=== PATIENT | male | born 1945 | race Asian ===

== ENCOUNTER → 2022-12-05 | Day surgery (SDC) | payer OTHER, MEDICAID ==
[~2022-12-05] MED LIST: BALANCED SALT 15 ML OPHTHALMIC IRRIG.SOLN ONE; EPINEPHrine 1:1,000 [1 MG/ML] VIAL ONE; KETOROLAC TROMETHAMINE 0.5% 5 ML OPHTHALMIC SOLUTION OD SCH; KETOROLAC TROMETHAMINE 0.5% 5 ML OPHTHALMIC SOLUTION ONE; LIDOCAINE/PF 1% 2 ML VIAL ONE; MOXIFLOXACIN HCL 0.5% 3 ML OPHTHALMIC SOLUTION OD SCH; MOXIFLOXACIN HCL 0.5% 3 ML OPHTHALMIC SOLUTION ONE; PHENYLEPHRINE HCL 2.5% 2 ML OPHTHALMIC SOLUTION OD SCH; PHENYLEPHRINE HCL 2.5% 2 ML OPHTHALMIC SOLUTION ONE; POVIDONE-IODINE 5% 30 ML OPHTHALMIC SOLUTION ONE; RINGERS SOLUTION,LACTATED 0 ML IV ONE; RINGERS SOLUTION,LACTATED 500 ML IV ONE; TETRACAINE HCL/PF 0.5% 4 ML OPHTHALMIC SOLUTION ONE; TROPICAMIDE 1% 2 ML OPHTHALMIC SOLUTION OD SCH; TROPICAMIDE 1% 2 ML OPHTHALMIC SOLUTION ONE
== END | disposition still patient (30) ==
LOC: SURGERY 09:24
PROVIDERS: ATTEND Ophthalmology
DX: H25.11 Age-related nuclear cataract, right eye (principal); Z53.8 Procedure and treatment not carried out for other reasons
CPT/HCPCS: J0171; J3490; Q9967; J7120

== ENCOUNTER → 2023-01-02 | Day surgery (SDC) | payer OTHER, MEDICAID ==
[~2023-01-02] VITALS: Ht 167.6 cm; Wt 77.3 kg
[~2023-01-02] MED LIST changes: +EMPA10TA3 PO; +FentaNYL CITRATE PF 100 MCG/2 ML VIAL IVP ONE; +HYALURONATE SOD 8.5MG/0.85ML 10 MG/ML SYRINGE IO ONE; -KETOROLAC TROMETHAMINE 0.5% 5 ML OPHTHALMIC SOLUTION OD SCH; +METO25 PO; +MIDAZOLAM HCL 2 MG/2 ML VIAL IVP ONE; -MOXIFLOXACIN HCL 0.5% 3 ML OPHTHALMIC SOLUTION OD SCH; -PHENYLEPHRINE HCL 2.5% 2 ML OPHTHALMIC SOLUTION OD SCH; -RINGERS SOLUTION,LACTATED 0 ML IV ONE; -TROPICAMIDE 1% 2 ML OPHTHALMIC SOLUTION OD SCH
[2023-01-02] MEDS: TROPICAMIDE 1% 2 ML OPHTHALMIC SOLUTION OD SCH ×3 (08:19→08:33)
[2023-01-02] MEDS: MOXIFLOXACIN HCL 0.5% 3 ML OPHTHALMIC SOLUTION OD SCH ×3 (08:19→08:33)
[2023-01-02] MEDS: KETOROLAC TROMETHAMINE 0.5% 5 ML OPHTHALMIC SOLUTION OD SCH ×3 (08:19→08:33)
[2023-01-02] MEDS: PHENYLEPHRINE HCL 2.5% 2 ML OPHTHALMIC SOLUTION OD SCH ×3 (08:19→08:33)
[2023-01-02 08:46] LABS: GLUCOMETER DEV NAME(LOC) SDS.; GLUCOSE,POINT OF CARE 137 MG/DL (70-110)
== END | disposition home or self-care (01) ==
LOC: SURGERY 07:18
PROVIDERS: ATTEND Ophthalmology
DX: E11.36 Type 2 diabetes mellitus with diabetic cataract (principal); H25.12 Age-related nuclear cataract, left eye; I10 Essential (primary) hypertension; I25.10 Atherosclerotic heart disease of native coronary artery without angina pectoris; E03.9 Hypothyroidism, unspecified; Z98.890 Other specified postprocedural states; Z95.1 Presence of aortocoronary bypass graft
CPT/HCPCS: 93005; 82962; 66984; J0171; J3010; J3490; J2250; Q9967; J7120; V2632

== ENCOUNTER 2023-04-03 08:43 | Day surgery (SDC) | payer OTHER, MEDICAID ==
[~2023-04-03] VITALS: Ht 167.6 cm; Wt 77.2 kg
[~2023-04-03 08:43] MED LIST changes: -BALANCED SALT 15 ML OPHTHALMIC IRRIG.SOLN ONE; -EPINEPHrine 1:1,000 [1 MG/ML] VIAL ONE; -FentaNYL CITRATE PF 100 MCG/2 ML VIAL IVP ONE; -HYALURONATE SOD 8.5MG/0.85ML 10 MG/ML SYRINGE IO ONE; -LIDOCAINE/PF 1% 2 ML VIAL ONE; -MIDAZOLAM HCL 2 MG/2 ML VIAL IVP ONE; -POVIDONE-IODINE 5% 30 ML OPHTHALMIC SOLUTION ONE; +RINGERS SOLUTION,LACTATED 0 ML IV ONE; -RINGERS SOLUTION,LACTATED 500 ML IV ONE; -TETRACAINE HCL/PF 0.5% 4 ML OPHTHALMIC SOLUTION ONE
[2023-04-03] MEDS ORDERED: RINGERS SOLUTION,LACTATED 500 ML IV ONE ×2 (09:00→10:24)
[2023-04-03] MEDS: KETOROLAC TROMETHAMINE 0.5% 5 ML OPHTHALMIC SOLUTION OS SCH ×3 (09:33→09:47)
[2023-04-03] MEDS: TROPICAMIDE 1% 2 ML OPHTHALMIC SOLUTION OS SCH ×3 (09:33→09:47)
[2023-04-03] MEDS: MOXIFLOXACIN HCL 0.5% 3 ML OPHTHALMIC SOLUTION OS SCH ×3 (09:34→09:48)
[2023-04-03] MEDS: PHENYLEPHRINE HCL 2.5% 2 ML OPHTHALMIC SOLUTION OS SCH ×3 (09:34→09:48)
[2023-04-03 10:21] LABS: GLUCOMETER DEV NAME(LOC) SDS.; GLUCOSE,POINT OF CARE 136 MG/DL (70-110)
[2023-04-03] MEDS ORDERED: POVIDONE-IODINE 5% 30 ML OPHTHALMIC SOLUTION ONE (10:38)
[2023-04-03] MEDS ORDERED: TETRACAINE HCL/PF 0.5% 4 ML OPHTHALMIC SOLUTION ONE (10:41)
[2023-04-03] MEDS ORDERED: EPINEPHrine 1:1,000 [1 MG/ML] VIAL ONE (10:44)
[2023-04-03] MEDS ORDERED: ALBUTEROL SULFATE 2.5 MG/0.5 ML NEB SOLUTION NEB ONE (10:58)
[2023-04-03] MEDS ORDERED: BALANCED SALT 15 ML OPHTHALMIC IRRIG.SOLN ONE (11:08)
[2023-04-03] MEDS ORDERED: LIDOCAINE/PF 1% 2 ML VIAL ONE (11:14)
[2023-04-03] MEDS ORDERED: MIDAZOLAM HCL 2 MG/2 ML VIAL IVP ONE (12:00)
[2023-04-03] MEDS ORDERED: FentaNYL CITRATE PF 100 MCG/2 ML VIAL IVP ONE (12:00)
== END 2023-04-03 11:35 | disposition home or self-care (01) ==
LOC: SURGERY 08:43
PROVIDERS: ATTEND Ophthalmology
DX: H25.12 Age-related nuclear cataract, left eye (principal); Z79.899 Other long term (current) drug therapy
CPT/HCPCS: 93005; 66984; 82962; J0171; J3010; J3490; J2250; Q9967; J7120; V2632